=== PATIENT | male | born 1965 | race Caucasian/White ===

== ENCOUNTER 2025-05-25 09:05 | Outpatient (AMB) | payer OTHER, SELFPAY ==
--- NOTE | 2025-05-25 09:16 | A.OFFVIS_ITS ---
Vital Signs 05/25/25 09:20 Height 5 ft 11 in Weight 184 lb BMI 25.7 BP 124/78 Blood Pressure Location Rt brachial Position Sitting Pulse 84 Intake Visit Reasons: hemorrhoid flare up Intake Note: [facility] for evaluation and treatment of internal and external hemorrhoids. Patient c/o: bleeding on and off with external hemorrhoids. Hidrocortisone cream helps. 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 He describes periodic swelling and discomfort with this hemorrhoids. He says that this has been going on for about 10 years although this has not that often. He says that he had episode of swelling and discomfort about 3 weeks ago He says that he had had resolved after a few days. He denies problems with constipation. He would notice small amounts of blood on wiping once in a while. He says he is up-to-date with his colonoscopies. [facility] Medical History (Updated 05/25/25 @ 09:29 by Dario Ambriz MD) Mixed internal and external hemorrhoid Seasonal allergies Tinnitus Impacted cerumen Otitis externa Nocturia Exposure to potentially hazardous substance Hiatal hernia Social History (Updated 05/25/25 @ 09:20 by QUINN Perdomo) Patient Tobacco Use Status: Never used Tobacco Review of Systems Const Denies chills and Denies fever(s) Card Denies chest pain, Denies dyspnea and Denies dyspnea on exertion Resp Denies cough, Denies dyspnea and Denies dyspnea on exertion GI Reports hematochezia and Denies change in bowel habits Denies hematuria and Denies difficulty urinating Musc Denies back pain and Denies limited range of motion Neuro Denies focal weakness and Denies convulsions Psych Denies depression and Denies mood swings Physical Exam Const General: comfortable and no acute distress Orientation/consciousness: patient oriented x3 Neck Neck: Yes no lymphadenopathy Resp Auscultation: clear to auscultation bilaterally Cardio Rhythm: regular rhythm GI Palpation (GI): Soft to palpation, nontender and no guarding Neuro General: patient oriented x3 Office Procedures Anoscopy He was in kneeling donnie-knife position. The anoscope was gently inserted. A full examination of the anal canal was done. He did have mixed internal and external hemorrhoidal columns on both the left and right side which were moderate-sized. There was no bleeding. There was no ulceration or fissure. There were no lesions seen. He had good sphincter tone. There was no induration on digital exam. [id number] Assessment & Plan Assessment & Plan (1) Mixed internal and external hemorrhoid: Code(s): K64.8 - Other hemorrhoids; K64.4 - Residual hemorrhoidal skin tags Category: Medical Plan: He does have moderate size internal external hemorrhoids on examination. I had a long discussion with the above the option of proceeding with hemorrhoidectomy. I explained the technique of exam under anesthesia and hemorrhoidectomy in the operating room. I reviewed the risks including but not limited to bleeding, infections, postop pain, poor healing, as well as the benefits and alternatives. I reviewed with him what to expect postoperatively He says that he is undecided at this time feels that he would like to hold off with hemorrhoidectomy for now. He said he will come back to the office down the line if he has another flare up to be re-evaluated. Medications: New clotrimazole 10 mg mucous membrane TID 1 tab 0RF famotidine 20 mg PO DAILY 30 tabs 0RF Coding Level of Care Code New Pt Level 3 (88626) Diagnoses Mixed internal and external hemorrhoid K64.8; K64.4 CPT Codes Details - CPT: 27257-[id number] ([id number])
[2025-05-25 09:20] VITALS: BP 124/78; PULSE 84; BMI 25.7
== END 2025-05-25 09:38 | disposition home or self-care (01) ==
LOC: HO.HGS 09:06
PROVIDERS: PCP Family Medicine; Visit Provider Surgery
DX: K64.8 Other hemorrhoids (principal)
CPT/HCPCS: 46600; 99203

== ENCOUNTER → 2025-05-25 09:05 | Outpatient (BNVA) | payer OTHER, SELFPAY | PROVIDERS: PCP Family Medicine; Visit Provider Surgery | DX: K64.4 Residual hemorrhoidal skin tags (principal); K64.8 Other hemorrhoids | CPT/HCPCS: 46600; 99202 ==